=== PATIENT | female | born 1985 | race American Indian/Alaskan Native ===

== ENCOUNTER 2021-12-26 14:02 | Emergency (ER) | payer OTHER ==
[2021-12-26 14:41] VITALS: BP 132/92
[2021-12-26] MEDS ORDERED: GLUCAGON (HUMAN RECOMBINANT) 1 MG/ML INJ IM ONE (19:16)
[2021-12-26] MEDS ORDERED: FAMOTIDINE 20 MG TAB PO ONE (20:22)
[2021-12-26] MEDS ORDERED: ONDANSETRON 4 MG ODT TAB PO ONE (20:22)
[2021-12-26] MEDS ORDERED: LIDOCAINE VISCOUS 2% 15 ML ORAL LIQD PO ONE (20:23)
[2021-12-26] MEDS ORDERED: ALUM-MAG HYDROXIDE-SIMETHICONE 200-200-20MG/5ML ORAL LIQD 30 ML PO ONE (20:23)
--- NOTE | 2021-12-26 20:59 | Cat Scan Report ---
CT NECK 12/26/2021 HISTORY: foreign body sensation throat. FINDINGS: Unenhanced CT images of the soft tissues of the neck were obtained. Images are evaluated in the axial, coronal, and sagittal plane. There is no evidence of abnormal neck mass, fluid collection, or inflammation. There is no CT evidence of foreign body". There is a normal CT appearance to the parotid and submandibular glands. Scattered normal-sized lymph nodes are present bilaterally. IMPRESSION: No significant abnormality. No CT evidence of foreign body. All CT scans at this location are performed using dose reduction to ALARA by means of automated expos ure control. Signer Name: Roni Rubin MD Signed: 12/26/2021 8:55 PM Workstation Name: [id number]
--- NOTE | 2021-12-26 21:35 | Emergency Department Report ---
ED General Adult HPI - General Chief complaint: Skin/Abscess/Foreign Body Stated complaint: FB IN THROAT Source: patient Mode of arrival: Ambulatory Limitations: No Limitations - History of Present Illness Initial comments: Patient is a 36-year-old female with past medical history of nkf-rgptudo-[id number] diabetes who presents to the ED with complaint of acute onset persistent sore throat, dysphagia, nausea and vomiting for the last 24 hours intermittently. Patient states that her symptoms started after she swallowed her medication metformin tablet and felt as if the medicine had lodged into her esophagus. Patient states that every time she drinks water or eat anything she experiences nausea and vomiting. Patient denies dysphonia, shortness of breath, abdominal pain, hemoptysis, hematemesis, traumatic injury, fever and chills, headache or diarrhea. MD Complaint: sore throat, dysphagia, nausea and vomiting -: Gradual, hour(s) (24) Location: mouth, neck Radiation: non-radiation Quality: burning, aching, sharp Consistency: constant Improves with: none Worsens with: eating Associated Symptoms: denies other symptoms. denies: confusion, chest pain, cough, diaphoresis, fever/chills, headaches, loss of appetite, malaise, nausea/vomiting, rash, seizure, shortness of breath, syncope, weakness Treatments Prior to Arrival: none - Related Data Previous Rx's Medication Instructions Recorded Last Taken Type Famotidine [Pepcid] 20 mg PO BID #60 tablet 12/26/21 Unknown Rx Ibuprofen [Motrin] 600 mg PO Q8H PRN #30 tablet 12/26/21 Unknown Rx Lidocaine Viscous 2% 15 ml PO Q6H PRN #120 ml 12/26/21 Unknown Rx Ondansetron [Zofran Odt] 4 mg PO Q8HR PRN #20 tab.rapdis 12/26/21 Unknown Rx Allergies Allergy/AdvReac Type Severity Reaction Status Date / Time No Known Allergies Allergy Unverified 12/26/21 19:16 ED Review of Systems ROS: Stated complaint: FB IN THROAT Other details as noted in HPI Constitutional: denies: chills, fever Eyes: denies: eye pain, eye discharge, vision change ENT: throat pain, other (Dysphagia). denies: ear pain, dental pain, epistaxis Respiratory: denies: cough, shortness of breath, wheezing Cardiovascular: denies: chest pain, palpitations Endocrine: no symptoms reported Gastrointestinal: nausea, vomiting. denies: abdominal pain, diarrhea, constipation, hematemesis, melena Genitourinary: denies: urgency, dysuria, discharge Musculoskeletal: denies: back pain, joint swelling, arthralgia Skin: denies: rash, lesions Neurological: denies: headache, weakness, paresthesias Psychiatric: denies: anxiety, depression Hematological/Lymphatic: denies: easy bleeding, easy bruising ED Past Medical Hx - Past Medical History Previous Medical History?: Yes Hx Diabetes: Yes - Medications Home Medications: Home Medications Medication Instructions Recorded Confirmed Last Taken Type Famotidine [Pepcid] 20 mg PO BID #60 tablet 12/26/21 Unknown Rx Ibuprofen [Motrin] 600 mg PO Q8H PRN #30 tablet 12/26/21 Unknown Rx Lidocaine Viscous 2% 15 ml PO Q6H PRN #120 ml 12/26/21 Unknown Rx Ondansetron [Zofran Odt] 4 mg PO Q8HR PRN #20 tab.rapdis 12/26/21 Unknown Rx ED Physical Exam - General Limitations: No Limitations General appearance: alert, in no apparent distress - Head Head exam: Present: atraumatic, normocephalic, normal inspection - Eye Eye exam: Present: normal appearance, PERRL, EOMI Pupils: Present: normal accommodation - ENT ENT exam: Present: normal exam, normal orophraynx, mucous membranes moist, TM's normal bilaterally, normal external ear exam - Neck Neck exam: Present: normal inspection, full ROM. Absent: tenderness - Respiratory Respiratory exam: Present: normal lung sounds bilaterally. Absent: respiratory distress, wheezes, rales, stridor, chest wall tenderness, accessory muscle use, decreased breath sounds, prolonged expiratory - Cardiovascular Cardiovascular Exam: Present: normal rhythm, tachycardia, normal heart sounds. Absent: systolic murmur, diastolic murmur, rubs, gallop - GI/Abdominal GI/Abdominal exam: Present: soft, normal bowel sounds. Absent: tenderness, guarding, rebound, rigid, hyperactive bowel sounds, hypoactive bowel sounds, organomegaly, mass, pulsatile mass - Extremities Exam Extremities exam: Present: normal inspection, full ROM, normal capillary refill. Absent: tenderness, pedal edema, joint swelling, calf tenderness - Back Exam Back exam: Present: normal inspection, full ROM. Absent: tenderness, CVA tenderness (R), CVA tenderness (L), muscle spasm, paraspinal tenderness - Neurological Exam Neurological exam: Present: alert, oriented X3, CN II-XII intact, normal gait, reflexes normal - Psychiatric Psychiatric exam: Present: normal affect, normal mood - Skin Skin exam: Present: warm, dry, intact, normal color. Absent: rash ED Course Vital Signs 12/26/21 14:38 Temperature 99.1 F Pulse Rate 111 H Respiratory 18 Rate Blood Pressure 132/92 [Right] O2 Sat by Pulse 99 Oximetry ED Medical Decision Making - Radiology Data Radiology results: report reviewed, image reviewed [facility] [address] [place] [address] Cat Scan Report Signed Patient: TAWNYA YEH MR#: [id number] : 1985 Acct:[id number] Age/Sex: 36 / F ADM Date: 12/26/21 Loc: ED Attending Dr: Ordering Physician: CRIS PERAZA Date of Service: 12/26/21 Procedure(s): CT neck wo con Accession Number(s): [id number] cc: CRIS PERAZA CT NECK 12/26/2021 HISTORY: foreign body sensation throat. FINDINGS: Unenhanced CT images of the soft tissues of the neck were obtained. Images are evaluated in the axial, coronal, and sagittal plane. There is no evidence of abnormal neck mass, fluid collection, or inflammation. There is no CT evidence of foreign body". There is a normal CT appearance to the parotid and submandibular glands. Scattered normal-sized lymph nodes are present bilaterally. IMPRESSION: No significant abnormality. No CT evidence of foreign body. All CT scans at this location are performed using dose reduction to ALARA by means of automated exposure control. Signer Name: Roni Rubin MD Signed: 12/26/2021 8:55 PM Workstation Name: [id number] Transcribed By: RAGHU Dictated By: Roni Rubin MD Electronically Authenticated By: Roni Rubin MD Signed Date/Time: 12/26/212054 DD/ 52 TD/TT: - Medical Decision Making This is a 36-year-old female with past medical history of sco-ohctlzo-tonovieth diabetes who presents to the ED with complaint of acute onset persistent sore throat, dysphagia, nausea and vomiting for the last 24 hours intermittently. Patient states that her symptoms started after she swallowed her medication metformin tablet and felt as if the medicine had lodged into her esophagus. Patient states that every time she drinks water or eat anything she experiences nausea and vomiting. In the ED, patient is alert and oriented x3 and is not in any distress. Patient is however anxious and tachycardic but afebrile in triage. Soft tissue neck CT scan without contrast showed no acute abnormalities or foreign bodies in the neck or throat. Patient was treated for pain in the ED and on reevaluation, patient felt better, and patient passed oral fluid challenge in the ED without any nausea or vomiting. Patient was discharged home on medications and advised to follow-up with her primary care physician in 7 to 10 days for reevaluation or return to the ED immediately if symptoms get worse. - Differential Diagnosis esophagitis; tonsillitis; esophageal abrasion; foreign body in throat; GERD Critical care attestation.: If time is entered above; I have spent that time in minutes in the direct care of this critically ill patient, excluding procedure time. ED Disposition Clinical Impression: Nausea and vomiting in adult, Sore throat and laryngitis Abrasion of esophagus Qualifiers: Encounter type: initial encounter Qualified Code(s): S27.818A - Other injury of esophagus (thoracic part), initial encounter GERD (gastroesophageal reflux disease) Qualifiers: Esophagitis presence: esophagitis presence not specified Qualified Code(s): K21.9 - Gastro-esophageal reflux disease without esophagitis Disposition: 01 HOME / SELF CARE / HOMELESS Is pt being admited?: No Does the pt Need Aspirin: No Condition: Stable Instructions: Esophagitis, Nausea and Vomiting, Adult, [id number], Gastroesophageal Reflux Disease, Adult, [id number], Pharyngitis, [id number] Additional Instructions: The soft tissue neck CT scan without contrast showed no acute abnormalities including foreign bodies in the throat. Therefore your symptoms are likely due to esophageal abrasion. Therefore take medication as advised, drink plenty of fluids, follow-up with your primary care physician in 7 to 10 days for reevaluation. Return to the ED immediately if symptoms get worse. Prescriptions: Lidocaine Viscous 2% 15 ml PO Q6H PRN #120 ml PRN Reason: Sore Throat Ibuprofen [Motrin] 600 mg PO Q8H PRN #30 tablet PRN Reason: Pain Famotidine [Pepcid] 20 mg PO BID #60 tablet Ondansetron [Zofran Odt] 4 mg PO Q8HR PRN #20 tab.rapdis PRN Reason: Nausea Referrals: [facility] [Provider Group] - 3-5 Days Time of Disposition: 21:32 Print Language: BENINESE
== END 2021-12-26 22:40 | disposition home or self-care (01) ==
LOC: ED 14:02
DX: S27.818A Other injury of esophagus (thoracic part), initial encounter (principal); R11.2 Nausea with vomiting, unspecified; J02.9 Acute pharyngitis, unspecified; K21.9 Gastro-esophageal reflux disease without esophagitis; X58.XXXA Exposure to other specified factors, initial encounter; Y93.89 Activity, other specified; Y92.89 Other specified places as the place of occurrence of the external cause; Y99.8 Other external cause status
CPT/HCPCS: 70490; 99283; J3490; Q0162